=== PATIENT | male | born 1975 | race African-American/Black ===

== ENCOUNTER 2017-01-24 11:34 | Emergency (ER) | payer OTHER ==
[~2017-01-24] VITALS: Ht 172.7 cm; Wt 104.0 kg
[~2017-01-24 11:34] MED LIST: TEMA15CA PO
[2017-01-24 11:36] VITALS: BP 161/110; PULSE 75; RESP 16; TEMP 98.4; O2SAT 100
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
[2017-01-24 13:40] VITALS: BP 160/89; PULSE 62; RESP 14; O2SAT 99
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
[2017-01-24] MEDS ORDERED: IBUP-232 PO (14:01)
== END 2017-01-24 14:10 | disposition home or self-care (01) ==
LOC: PHED 11:34
DX: S06.0X0A Concussion without loss of consciousness, initial encounter (principal); S16.1XXA Strain of muscle, fascia and tendon at neck level, initial encounter; I10 Essential (primary) hypertension; V43.52XA Car driver injured in collision with other type car in traffic accident, initial encounter; Y93.9 Activity, unspecified; Y92.9 Unspecified place or not applicable; Y99.9 Unspecified external cause status
CPT/HCPCS: 70450; 72125